=== PATIENT | male | born 1985 | race Caucasian/White ===

== ENCOUNTER 2020-04-04 15:16 | Emergency (ER) | payer SELFPAY ==
[2020-04-04 15:25] VITALS: BP 113/84
--- NOTE | 2020-04-04 16:07 | ER Document Report ---
HPI - HPI Patient complains to provider of: Pain to right hand Time Seen by Provider: 04/04/20 16:02 Onset: Just prior to arrival Pain Level: 3 Associated Symptoms: None Exacerbated by: Denies Similar symptoms previously: No Recently seen / treated by doctor: No - MUSCULOSKELETAL Musculoskeletal: REPORTS: Extremity pain - left hand Past Medical History - General Information source: Patient - Social History Smoking Status: Current Every Day Smoker Frequency of alcohol use: None Drug Abuse: Marijuana Family History: Reviewed & Not Pertinent Patient has homicidal ideation: No Past Surgical History: Reports: Hx Herniorrhaphy - Umbilical hernia repair - Immunizations Hx Diphtheria, Pertussis, Tetanus Vaccination: No Vertical Provider Document - CONSTITUTIONAL Agree With Documented VS: Yes - INFECTION CONTROL TRAVEL OUTSIDE OF THE [place] IN LAST 30 DAYS: No - HEENT HEENT: Atraumatic, Conjuctival Injection, Normocephalic, PERRLA - NECK Neck: Normal Inspection - RESPIRATORY Respiratory: Breath Sounds Normal - CARDIOVASCULAR Cardiovascular: Regular Rate, Regular Rhythm - GI/ABDOMEN Gastrointestinal: Abdomen Soft, Abdomen Non-Tender - REPRODUCTIVE Male Genitalia: Normal Inspection - BACK Back: Normal Inspection - MUSCULOSKELETAL/EXTREMETIES Musculoskeletal/Extremeties: MAEW Course - Vital Signs Vital signs: Temp Pulse Resp BP Pulse Ox 98.5 F 78 14 113/84 100 04/04/20 15:57 04/04/20 15:21 04/04/20 15:21 04/04/20 15:21 04/04/20 15:21 Discharge - Discharge Clinical Impression: Left against medical advice Disposition: AGAINST MEDICAL ADVICE Doctor's Note Notes: 04/05/20 21:48 Currently the patient had signed out AGAINST MEDICAL ADVICE. Unbeknownst to myself.
--- NOTE | 2020-04-04 16:27 | RADIOLOGY REPORT (SQ) ---
EXAM DESCRIPTION: HAND LEFT 3 VIEWS IMAGES COMPLETED DATE/TIME: 04/04/2020 4:12 pm REASON FOR STUDY: pain COMPARISON: None. EXAM PARAMETERS: NUMBER OF VIEWS: Three views. TECHNIQUE: AP, lateral and oblique radiographic images acquired of the left hand. LIMITATIONS: None. FINDINGS: MINERALIZATION: Normal. BONES: No acute fracture or dislocation. No worrisome bone lesions. JOINTS: No effusions. SOFT TISSUES: Punctate hyperdensities are seen in the region of the 5th digit proximal interphalangea l joint on the oblique image only. OTHER: No other significant finding. IMPRESSION: No evidence of acute osseous injury. Punctate hyperdensities seen adjacent to the 5th d igit proximal interphalangeal joint may represent retained radiopaque foreign bodies versus debris ex ternal to the patient. TECHNICAL DOCUMENTATION: JOB ID: [id number] 2010 [employer]- All Rights Reserved Reading location - IP/workstation name: [email or web address]
--- NOTE | 2020-04-04 20:33 | ER Document Report ---
Doctor's Note Notes: 04/04/20 20:33 Patient left AMA before I was able to go in and see the patient. I did not see this patient.
== END 2020-04-04 20:21 | disposition left against medical advice (07) ==
LOC: ER 15:16
DX: M79.643 Pain in unspecified hand (principal); W22.09XA Striking against other stationary object, initial encounter; F17.200 Nicotine dependence, unspecified, uncomplicated; F12.10 Cannabis abuse, uncomplicated; Z53.20 Procedure and treatment not carried out because of patient's decision for unspecified reasons
CPT/HCPCS: 99281